=== PATIENT | male | born 1995 | race Caucasian/White ===

== ENCOUNTER → 2018-06-27 | Outpatient (CLI) | payer BC ==
--- NOTE | 2018-06-27 10:11 | RADIOLOGY IMAGING REPORT ---
FACILITY: [facility] [place] PATIENT NAME: Wali Barger : 1995 MR: [id number] V: [id number] EXAM DATE: [id number] ORDERING PHYSICIAN: JOSE ALEJANDRO MERCADO TECHNOLOGIST: Location: [facility] Patient: Wali Barger : 1995 Visit/Account:[id number] Date of Sevice: 06/27/2018 Exam type: XR WRIST 3 OR MORE VIEWS LT History: Fell off horse landing on outstretched hand, distal radius and snuffbox tenderness Comparison: None. Findings: Four views are submitted. There is an acute appearing fracture through the waist of the left scaphoi d bone with approximate 1.4 mm diastases of the fracture fragments. There is surrounding soft tissue swelling present IMPRESSION: 1. There is an acute appearing fracture to the waist of the left scaphoid bone with approximately 1. 4 mm diastases of the fracture fragments. Report Dictated By: Lien Abebe MD at 06/27/2018 10:03 AM Report E-Signed By: Lien Abebe MD at 06/27/2018 10:06 AM WSN:[id number]
== END ==
LOC: RAD 08:40
PROVIDERS: ATTEND Emergency Medicine Sports Medicine
DX: M79.642 Pain in left hand (principal)

== ENCOUNTER → 2018-06-28 | Outpatient (CLI) | payer BC ==
--- NOTE | 2018-06-28 15:38 | RADIOLOGY IMAGING REPORT ---
FACILITY: [facility] [place] PATIENT NAME: Wali Barger : 1995 MR: [id number] V: [id number] EXAM DATE: ORDERING PHYSICIAN: LEONARDA DEAN TECHNOLOGIST: Location: [facility] [place] Patient: Wali Barger : 1995 Visit/Account:[id number] Date of Sevice: 06/28/2018 CT WRIST/HAND W/O LT COMPARISON: Left wrist radiographs June 27, 2018. HISTORY: Left wrist scaphoid fracture. TECHNIQUE: Noncontrast axial CT of the left wrist with coronal and sagittal reformats. One of the following dose optimization techniques was utilized in the performance of this exam: auto mated exposure control; adjustment of the mA and/or kV according to patient size; or use of iterative reconstruction technique. Specific details can be referenced in the facility's radiology CT exam op erational policy. CONTRAST: None. FINDINGS: BONES : Acute nondisplaced transverse fracture of the scaphoid waist. 1 x 1 x 5 mm chip fracture fragment from the volar aspect of the triquetrum, displaced anteriorly by 1 mm. No other acute fractures and no significant arthropathy. Carpal alignment within normal limits withou t significant widening of the scapholunate interval. FLUID: No appreciable effusion or drainable fluid collection. SOFT TISSUES: No muscle atrophy. Normal position and CT appearance/morphology of the flexor and exte nsor tendons. OTHER: Negative. IMPRESSION: 1. Acute nondisplaced fracture of the waist of the left scaphoid. 2. Acute chip fracture from the volar margin of the triquetrum, displaced anteriorly by 1 mm. . Report Dictated By: Lupillo Zhu at 06/28/2018 3:29 PM Report E-Signed By: Lupillo Zhu at 06/28/2018 3:34 PM WSN:[id number]
== END ==
LOC: CT 14:22
PROVIDERS: ATTEND Orthopaedic Surgery Hand Surgery
DX: S62.002A Unspecified fracture of navicular [scaphoid] bone of left wrist, initial encounter for closed fracture (principal)